=== PATIENT | female | born 1980 | race Caucasian/White ===

== ENCOUNTER 2022-02-17 10:49 | Inpatient (IN) ==
[2022-02-17] MEDS ORDERED: *HR* OxyCODONE Immed Rel 5 MG TABLET PO ONE (11:00)
[2022-02-17] MEDS ORDERED: Pregabalin 75 MG CAPSULE PO ONE (11:00)
[2022-02-17] MEDS ORDERED: *HR* FentaNYL (PF) 100 MCG/2 ML VIAL IVP PRN (11:15)
[2022-02-17] MEDS ORDERED: Ondansetron 4 MG/2 ML VIAL IVP PRN ×2 (11:15→20:39)
[2022-02-17] MEDS ORDERED: CeFAZolin Syr 2,000MG/20 ML 2,000 MG/20 ML SYRINGE IVPB ONE (11:42)
[2022-02-17] MEDS ORDERED: Ringers Solution, Lactated 1,000 ML IVC SCH (11:45)
[2022-02-17] MEDS ORDERED: *HR* FentaNYL (PF) 100 MCG/2 ML VIAL ONE (11:51)
[2022-02-17] MEDS ORDERED: *HR* Succinylcholine 200 MG/10 ML VIAL IVP ONE (11:51)
[2022-02-17] MEDS ORDERED: *HR* Midazolam HCl 2 MG/2 ML VIAL ONE (11:51)
[2022-02-17] MEDS ORDERED: *HR* Rocuronium Bromide 50 MG/5 ML VIAL ONE (11:51)
[2022-02-17] MEDS ORDERED: Lidocaine -MPF 2% 2 ML VIAL ONE (11:51)
[2022-02-17] MEDS ORDERED: *HR* Propofol 200 MG/20 ML VIAL IVP ONE ×2 (11:51→18:25)
[2022-02-17] MEDS ORDERED: Ondansetron 4 MG/2 ML VIAL ONE ×3 (11:51→19:12)
[2022-02-17] MEDS ORDERED: *HR* Remifentanil 2 MG VIAL IVP ONE (11:55)
[2022-02-17] MEDS: tiZANidine 4 MG TABLET PO SCH ×2 (12:03→18:36)
[2022-02-17] MEDS ORDERED: Polymyxin B Sulfate 500,000 UNIT, Sodium Chloride IRRigation 1,000 ML IR ONE (12:50)
[2022-02-17] MEDS ORDERED: Vancomycin 1,000 MG VIAL ONE (12:56)
[2022-02-17] MEDS ORDERED: Sugammadex Sodium 200 MG/2 ML VIAL IV ONE (15:35)
[2022-02-17] MEDS ORDERED: *HR* HYDROMORPHONE 2 MG/ML VIAL ONE (17:44)
[2022-02-17] MEDS: *HR* HYDROmorphone PF 0.5 MG/0.5 ML SYRINGE IVP PRN ×7 (18:36→19:38)
[2022-02-17] MEDS ORDERED: *HR* HYDROmorphone (PF) 1 MG/ML SYRINGE IVP ONE (18:37)
[2022-02-17] MEDS ORDERED: Acetaminophen IV 1,000 MG/100 ML BAG IVPB ONE (18:38)
[2022-02-17] MEDS ORDERED: *HR* OxyCODONE Immed Rel 5 MG TABLET PO PRN (19:05)
[2022-02-17] MEDS ORDERED: Acetaminophen 325 MG TABLET PO PRN (20:39)
[2022-02-17] MEDS ORDERED: Benzonatate 100 MG CAPSULE PO PRN (20:39)
[2022-02-17] MEDS ORDERED: Naloxone 0.4 MG/ML INJ IVP PRN (20:39)
[2022-02-17] MEDS: Ringers Solution, Lactated 1,000 ML IVC SCH (21:32)
[2022-02-17] MEDS: predniSONE 20 MG TABLET PO SCH (21:32)
[2022-02-17] MEDS: CeFAZolin 2 GM/120 ML BAG IVPB SCH (21:33)
[2022-02-18] MEDS: *HR* OxyCODONE Immed Rel 5 MG TABLET PO PRN ×3 (00:14→09:40)
[2022-02-18] MEDS: CeFAZolin 2 GM/120 ML BAG IVPB SCH (06:09)
[2022-02-18] MEDS: Azithromycin 250 MG TABLET PO SCH (09:28)
[2022-02-18] MEDS: predniSONE 20 MG TABLET PO SCH ×2 (09:28→20:41)
[2022-02-18] MEDS: Ringers Solution, Lactated 1,000 ML IVC SCH (12:44)
[2022-02-18] MEDS: *HR* HYDROcodone/Acet 5/325 mg TABLET PO PRN (16:47)
[2022-02-18] MEDS: Gabapentin 400 MG CAPSULE PO SCH (20:41)
[2022-02-18] MEDS ORDERED: diazePAM 10 MG TABLET PO PRN (21:01)
[2022-02-19] MEDS: *HR* HYDROcodone/Acet 5/325 mg TABLET PO PRN ×2 (06:46→13:09)
[2022-02-19] MEDS: Azithromycin 250 MG TABLET PO SCH (09:01)
[2022-02-19] MEDS: Gabapentin 400 MG CAPSULE PO SCH (09:02)
[2022-02-19] MEDS: predniSONE 20 MG TABLET PO SCH (09:02)
[2022-02-19 10:50] VITALS: BP 142/98; PULSE 94; TEMP 98.9; O2SAT 98
== END 2022-02-19 14:45 | disposition home or self-care (01) | DRG 304 ==
LOC: SDCAOSI 10:49 → 4WAOSI 12:36
PROVIDERS: ADMIT Orthopaedic Surgery Orthopaedic Surgery of the Spine; ATTEND Orthopaedic Surgery Orthopaedic Surgery of the Spine